=== PATIENT | male | born 1950 | race Caucasian/White ===

== ENCOUNTER 2016-08-30 08:15 | Day surgery (SDC) | payer MEDICARE ==
[~2016-08-30] VITALS: Ht 188 cm; Wt 113.0 kg
[~2016-08-30 08:15] MED LIST: Sodium Chloride LOK Flush 10 mL Syringe IV PRN; fentaNYL-PF 50 mCg/mL 2 mL Inj IVPUSH PRN
[2016-08-30 08:34] VITALS: BP 153/91; PULSE 66; RESP 16; O2SAT 97
[2016-08-30] MEDS ORDERED: OMEP20CA11 PO (08:36)
[2016-08-30] MEDS ORDERED: LOSA50TA37 PO (08:36)
[2016-08-30] MEDS ORDERED: ZYL100 PO (08:36)
[2016-08-30] MEDS: 0.9% Sodium Chloride 1,000 ML IV SCH ×3 (09:30→10:16)
[2016-08-30 10:22] VITALS: BP 113/73; PULSE 60; RESP 14; O2SAT 92
[2016-08-30 10:32] VITALS: BP 122/78; PULSE 58; RESP 14; O2SAT 94
[2016-08-30 10:42] VITALS: BP 114/73; PULSE 60; RESP 16; O2SAT 98
--- NOTE | 2016-08-30 23:08 | ENDO ---
[address] [address] ENDOSCOPY PROCEDURE PATIENT: TAMANNA MCKENZIE : 1950 MR#: [id number] ADMIT: 08/30/2016 JOB ID: [id number] DATE OF PROCEDURE: 08/30/2016 PROCEDURE: Colonoscopy. PREOPERATIVE DIAGNOSIS: Colorectal cancer screening. POSTOPERATIVE DIAGNOSIS(ES): 1. One hepatic flexure polyp. 2. Two distal transverse colon polyps. 3. Four distal sigmoid colon polyps. OPERATION: Colonoscopy to cecum with snare polypectomy x2 and cold forceps polypectomy x5. SURGEON: Gamaliel Moore MD. INDICATIONS: A 66-year-old man for colorectal cancer screening. His last colonoscopy was about 12 years ago and was normal. FINDINGS: He had a good prep. The scope was advanced to the cecum with difficulty as getting the last bit in from the ascending colon into the cecum was difficult, but ultimately achieved. The scope was withdrawn over 13 minutes and 30 seconds. Polyps were removed as the scope was being advanced, and also as it was withdrawn. A total of seven polyps were removed, one at the hepatic flexure, two in the distal transverse colon, four in the distal sigmoid colon. All grossly appeared to be adenomatous. There appeared to be no complications from the polypectomies. All specimens were retrieved. There were submitted in three groups. Retroflexed views of the rectum were normal. The patient tolerated the procedure well. IMPRESSION: Seven colon polyps. RECOMMENDATIONS: Repeat colonoscopy in three years.
--- NOTE | 2016-08-31 15:46 | PATH ---
SURGICAL PATHOLOGY Attending Physician:Khushbu Hodge CASE STATUS: Signed Out PATIENT NAME: TAMANNA MCKENZIE PID: [id number] : 1950 DATE COLLECTED:08/30/2016 17:22 SPECIMEN: 1: Colon, Biopsy 2: Colon, Biopsy 3: Colon, Biopsy CLINICAL HISTORY: 1). DISTAL SIGMOID COLON POLYPS X4 2). TRANSVERSE COLON POLYPS X2 (DISTAL) 3). HEPATIC FLEXURE POLYP FINAL DIAGNOSIS: 1.DISTAL SIGMOID COLON POLYPS: HYPERPLASTIC POLYPS INVOLVING THREE BIOPSY FRAGMENTS. 2.TRANSVERSE COLON POLYPS: TUBULAR ADENOMA INVOLVING ALL THREE BIOPSY FRAGMENTS. 3.HEPATIC FLEXURE POLYP: TUBULAR ADENOMA. ICD10 CODE D12.4 GROSS DESCRIPTION: The specimen is received in four formalin filled containers labeled with the patient's name. 1). The specimen is sublabeled "distal sigmoid polyps" and consists of 4 portions of tissue which aggregate to 0.4 x 0.4 x 0.3 CM. The specimen is entirely submitted in cassette 1A. 2). The specimen is sublabeled "distal transverse polyps" and consists of 3 portions of tissue which aggregate to 0.4 x 0.4 x 0.3 CM. The specimen is entirely submitted in cassettes 2A. 3). The specimen is sublabeled "hepatic flexure polyp" and consists of a 0.3 x 0.2 x 0.2 CM portion of tissue which is entirely submitted in cassette 3A. 08/30/2016 [facility] MICRO DESCRIPTION: See diagnosis. ICD-9 CODES: CPT CODES: 1: 76428 2: 60583 3: 88879 Electronically Signed Out Good Isaacs MD [facility] Pathology [facility] [address], [place] [address] Technical component performed at [facility], [facility] [address], [place], [address]
== END 2016-08-30 23:59 | disposition home or self-care (01) ==
LOC: END 08:15
PROVIDERS: ATTEND Surgery
DX: Z12.11 Encounter for screening for malignant neoplasm of colon (principal); D12.2 Benign neoplasm of ascending colon; D12.3 Benign neoplasm of transverse colon; K63.5 Polyp of colon; Z83.71 Family history of colonic polyps; I10 Essential (primary) hypertension; G47.00 Insomnia, unspecified; M10.9 Gout, unspecified; F41.9 Anxiety disorder, unspecified; K21.9 Gastro-esophageal reflux disease without esophagitis; M19.90 Unspecified osteoarthritis, unspecified site
CPT/HCPCS: 45380; 45385; 99153; G0500; J7030

== ENCOUNTER 2016-09-13 09:12 | Day surgery (SDC) | payer MEDICARE ==
[~2016-09-13] VITALS: Ht 188 cm; Wt 113.6 kg
[~2016-09-13 09:12] MED LIST changes: +0.9% Sodium Chloride 1,000 ML IV SCH
[2016-09-13 09:25] VITALS: BP 154/99; PULSE 73; RESP 14; O2SAT 96
[2016-09-13] MEDS ORDERED: LOSA50TA37 PO (09:30)
[2016-09-13] MEDS ORDERED: ZYL100 PO (09:30)
[2016-09-13] MEDS ORDERED: OMEP20CA11 PO (09:30)
[2016-09-13 10:15] VITALS: BP 122/77; PULSE 57; RESP 14; O2SAT 91
[2016-09-13 10:25] VITALS: BP 128/74; PULSE 57; RESP 16; O2SAT 91
[2016-09-13 10:35] VITALS: BP 121/80; PULSE 67; RESP 16; O2SAT 93
--- NOTE | 2016-09-13 23:27 | ENDO ---
[address] [address] ENDOSCOPY PROCEDURE PATIENT: TAMANNA MCKENZIE : 1950 MR#: [id number] ADMIT: 09/13/2016 JOB ID: [id number] DATE OF PROCEDURE: 09/13/2016 PREOPERATIVE DIAGNOSIS(ES): Epigastric pain. POSTOPERATIVE DIAGNOSIS(ES): 1. Epigastric pain. 2. Gastric fundal polyps. PROCEDURE: Upper endoscopy with biopsy. SURGEON: Gamaliel Moore MD. INDICATIONS: The patient is a 66-year-old man who has intermittent epigastric pain. He has had this intermittently over several years. Eleven years ago, I performed a laparoscopic cholecystectomy and cholangiogram for gallbladder dyskinesia. At that time he had no gallstones identified by ultrasound. He had an abnormal HIDA scan. His final pathology report showed chronic cholecystitis. His pain has persisted. He had a CT scan of his abdomen and pelvis yesterday that showed some hepatic steatosis and some diffuse distal esophageal thickening with a hiatal hernia. He had minimal diverticulosis. The CT scan was not significantly changed from a CT scan from seven years ago. Two weeks ago, he had a colonoscopy with four tubular adenomas. After discussing options with the patient it was elected to proceed with an upper endoscopy. FINDINGS: His GE junction was at 42 cm from the incisors. If he has a hiatal hernia it is very small. I actually did not appreciate a hiatal hernia. The esophageal mucosa was entirely normal. There is a sharp transition from esophageal to gastric mucosa without any evidence of Monte's inflammation, ulceration or stricture. Retroflexed views of the cardia revealed a Hill grade I flap valve (normal). He had a few scattered gastric fundal polyps that looked typical and two were biopsied. The body and antrum of the stomach was grossly normal. The pylorus and duodenum into the third portion was also normal. PROCEDURE: The procedure and sedation plan was discussed with the patient and nursing staff, and a procedural time-out was held. He gargled with viscous Xylocaine. He received 5 mg of Versed and 100 mcg of fentanyl. The Olympus GIF-H180J video endoscope was passed transorally, advanced into the third portion of the duodenum, withdrawn with results as stated above. Two gastric polypectomies were performed with cold forceps. The patient tolerated the procedure well. There were no apparent complications. IMPRESSION: Epigastric pain. The cause of his pain is not identified by this study.
--- NOTE | 2016-09-14 11:05 | PATH ---
SURGICAL PATHOLOGY Attending Physician:Khushbu Hodge CASE STATUS: Signed Out PATIENT NAME: TAMANNA MCKENZIE PID: [id number] : 1950 DATE COLLECTED:09/13/2016 17:28 SPECIMEN: Stomach, Polyp, Biopsy CLINICAL HISTORY: 1). GASTRIC POLYP BIOPSY FINAL DIAGNOSIS: Gastric Polyp Biopsy: Benign fundic-gland polyp. Negative for evidence of Helicobacter. Negative for intestinal metaplasia. Negative for dysplasia and malignancy. ICD10 K31.7 GROSS DESCRIPTION: The specimen is received in one formalin filled container labeled with the patient's name, sublabeled "gastric polyp" and consists of 2 portions of tissue which aggregate to 0.3 x 0.3 x 0.2 CM. The specimen is entirely submitted in one cassette. 09/13/2016 [facility] ICD-9 CODES: CPT CODES: 1: 52841 Electronically Signed Out Good Isaacs MD [facility] Pathology [facility] [address] [facility], [place] [address] Technical component performed at [facility], [address] [place] [address] [address], [place], [address]
== END 2016-09-13 23:59 | disposition home or self-care (01) ==
LOC: END 09:12
PROVIDERS: ATTEND Surgery
DX: R10.13 Epigastric pain (principal); K31.7 Polyp of stomach and duodenum; K57.30 Diverticulosis of large intestine without perforation or abscess without bleeding; K44.9 Diaphragmatic hernia without obstruction or gangrene; Z86.010 Personal history of colon polyps